=== PATIENT | male | born 1935 | race Caucasian/White ===

== ENCOUNTER 2017-05-09 22:00 | Emergency (ER) | payer OTHER ==
[~2017-05-09] VITALS: Ht 160 cm; Wt 63.4 kg
[~2017-05-09 22:00] MED LIST: ASPCH81X PO; ATOR-26 PO; CARV3.12 PO; FENT50DI19 TD; FERR1TAB24 PO; MULT-506 PO; PRLSR20 PO; SITA50TA3 PO; VANC1INJ10 PO; WARF-283 PO
[2017-05-09] MEDS ORDERED: ETOMIDATE 2 MG/ML 20 ML VIAL IV ONE (22:02)
[2017-05-09] MEDS ORDERED: SODIUM CHLORIDE 0.9% 10ML FLUSH IV ONE (22:02)
[2017-05-09] MEDS ORDERED: SUCCINYLCHOLINE CHLORIDE 20 MG/ML 10 ML VIAL IV ONE (22:02)
[2017-05-09] MEDS ORDERED: ROCURONIUM BROMIDE 10 MG/ML 10 ML VIAL IV ONE (22:02)
[2017-05-09] MEDS ORDERED: SODIUM CHLORIDE 0.9% INJ 10 ML VIAL IV ONE (22:02)
[2017-05-09] MEDS ORDERED: VECURONIUM BROMIDE 10 MG VIAL IV ONE (22:02)
[2017-05-09] MEDS ORDERED: SODIUM BICARB 8.4% INJ 50 MEQ/50 ML SYR IV ONE (22:02)
[2017-05-09 22:03] VITALS: TEMP 36.5; Ht 160 cm; Wt 63.4 kg
[2017-05-09] MEDS ORDERED: SODIUM CHLORIDE 0.9% 500ML 500 ML IV STA (22:13)
[2017-05-09] MEDS ORDERED: SODIUM CHLORIDE 0.9% 1000ML 1,000 ML IV STA (22:13)
[2017-05-09] MEDS ORDERED: LIDOCAINE/EPINEPHRINE 1% 20 ML VIAL INFIL ONE (22:15)
[2017-05-09] MEDS ORDERED: RAPID SEQUENCE INDUCTION BAG ONE (22:43)
[2017-05-09] MEDS ORDERED: ATOR-24 PO (22:57)
[2017-05-09] MEDS ORDERED: ASPCH81X PO (22:57)
[2017-05-09] MEDS ORDERED: CALC0.2510 PO (22:58)
[2017-05-09] MEDS ORDERED: FURO-85 PO (22:58)
[2017-05-09] MEDS ORDERED: GLIP-172 PO (22:58)
[2017-05-09] MEDS ORDERED: WARF4TAB PO ×2 (23:01)
--- NOTE | 2017-05-09 23:05 | DIAGNOSTIC IMAGING REPORT ---
CHEST ONE VIEW PORTABLE CLINICAL HISTORY: Weakness. Fall. COMPARISON STUDY: Chest radiograph October 27, 2013. FINDINGS: A right internal jugular [id number] is in place. There are median sternotomy wires and clips from bypass grafting. Cardiomegaly is unchanged. There is a small to moderate right pleural effusion and a small left pleural effusion. Hazy right lung airspace opacity. There is mild left basilar opacity. There is no pneumothorax. IMPRESSION: 1. No pneumothorax. 2. Small to moderate right pleural effusion. Small left pleural effusion. 3. Asymmetric right lung airspace opacity which could reflect atelectasis, layering pleural fluid, pneumonia or asymmetric pulmonary edema. Electronically signed by: Adrien Rene M.D. 05/09/2017 11:04 PM Dictated Date/Time: 05/09/2017 11:01 PM
[2017-05-09] MEDS ORDERED: PHYTONADIONE INJ 10 MG in SODIUM CHLORIDE 0.9% 50ML 50 ML IV ONE (23:15)
[2017-05-09 23:18] LABS: ISTAT ARTERIAL BLOOD GAS HCO3 22 meq/L (19-24); ISTAT ARTERIAL BLOOD GAS PCO2 46 mmHg (35-46); ISTAT ARTERIAL BLOOD GAS PO2 297 mmHg (80-95); ISTAT ARTERIAL BLOOD GAS pH 7.29 (7.35-7.45); ISTAT CARBON DIOXIDE 24 mEq/l (24-31); ISTAT HEMATOCRIT 23 % (42-52); ISTAT HEMOGLOBIN 7.8 g/dl (14.0-18.0); ISTAT SODIUM 139 mEq/L (135-144)
[2017-05-09] MEDS ORDERED: DOPamine 400MG / 250ML D5W ONE (23:30)
[2017-05-09] MEDS ORDERED: NOREPINEPHRINE BIT INJ 8 MG in DEXTROSE 5% 500ML 500 ML IV STA (23:33)
[2017-05-09 23:40] LABS: HEMATOCRIT 26.7 % (42-52); MEAN CELL VOLUME 97.4 fL (80-100); MEAN CORPUSCULAR HEMOGLOBIN 32.5 pg (25-34); MEAN CORPUSCULAR HGB CONC 33.3 g/dl (32-36); MEAN PLATELET VOLUME 12.1 fL (7.4-10.4); PLATELET COUNT 194 K/uL (130-400); RED BLOOD COUNT 2.74 M/uL (4.7-6.1); WHITE BLOOD COUNT 10.04 K/uL (4.8-10.8)
[2017-05-09] MEDS ORDERED: NOREPINEPHRINE BIT INJ 8 MG in DEXTROSE 5% 500ML 500 ML IV PRN (23:45)
[2017-05-09 23:47] LABS: INR 2.3 (0.9-1.1); PARTIAL THROMBOPLASTIN RATIO 2.5; PROTHROMBIN TIME (PATIENT) 25.5 SECONDS (9.0-12.0)
[2017-05-09 23:52] LABS: BASO % 1.2 %; BASO ABS # 0.12 K/uL (0-0.2); COMPLETE YES; EOS % 7.8 %; IG% 0.9 %; LYMPH % 24.8 %; LYMPH ABS # 2.49 K/uL (1.2-3.4); MONO % 9.4 %; NEUT % 55.9 %; PLT ESTIMATE NORMAL
[2017-05-10] MEDS ORDERED: PROTHROMBIN COMP CONC- KCENTRA 1,500 UNIT in SYRINGE 0 ML IV ONE
[2017-05-10 00:05] LABS: ALKALINE PHOSPHATASE 34 U/L (45-117); ALT/SGPT 13 U/L (12-78); AST/SGOT 15 U/L (15-37); BLOOD UREA NITROGEN 37 mg/dl (7-18); BUN/CREATININE RATIO 13.3 (10-20); CALCIUM 6.3 mg/dl (8.5-10.1); CARBON DIOXIDE 21 mmol/L (21-32); CHLORIDE 110 mmol/L (98-107); GLUCOSE 441 mg/dl (70-99); POTASSIUM 4.4 mmol/L (3.5-5.1); SODIUM 142 mmol/L (136-145)
[2017-05-10 00:11] VITALS: BP 105/61; PULSE 90
--- NOTE | 2017-05-10 00:38 | EMERGENCY ROOM VISIT NOTE ---
ED Visit Note First contact with patient: 22:06 Tube Thoracostomy Indication: Pneumothorax/MIKE; hypotension, coagulopathy Emergently placed. At this time, the risks of the procedure are less than the risks of NOT performing the procedure. A time out was taken and the correct patient and site identified. The patient was prepped and draped in the standard surgical fashion. A 3 cm incision was made transversely in the mid axillary line over the fifth intercostal rib. Blunt dissection was done with a Paloma clamp to the area of the intercostal muscles; Blunt dissection was then done with the Paloma clamps into the pleural cavity over the rib. [blood and air ] was noted upon entering the pleural cavity. The pleural cavity was digitally inspected to confirm that the pleural cavity had been entered. A 32 Portuguese thoracostomy tube was inserted in the superior/posterior portion of the pleural space. 1-0 silk suture was used to approximate the skin above the thoracostomy tube and then used to secure the thoracostomy tube. An occlusive dressing was then placed and the thoracostomy tube was hooked to the Pleur-evac suction. The patient tolerated the procedure well without complications. A postoperative x- ray was then performed which showed the thoracostomy tube in the correct position.
[2017-05-10 00:56] VITALS: BP 54/41; O2SAT 96
[2017-05-10] MEDS ORDERED: TRANEXAMIC ACID INJ 1,000 MG in SODIUM CHLORIDE 0.9% 100ML 100 ML IV ONE (01:00)
[2017-05-10 01:02] VITALS: PULSE 30
[2017-05-10] MEDS ORDERED: EpINEphrine HCL INJ 4 MG in DEXTROSE 5% 250ML 250 ML IV SCH (01:08)
[2017-05-10 01:25] LABS: ISTAT CARBON DIOXIDE 17 mEq/l (24-31); ISTAT CHLORIDE 97 mEq/L (101-112); ISTAT CREATININE 2.7 mg/dl (0.6-1.3); ISTAT HEMATOCRIT 26 % (42-52); ISTAT HEMOGLOBIN 8.8 g/dl (14.0-18.0); ISTAT IONIZED CALCIUM 0.84 mmol/l (1.12-1.32); ISTAT SODIUM 129 mEq/L (135-144)
--- NOTE | 2017-05-10 02:07 | EMERGENCY ROOM VISIT NOTE ---
ED Visit Note First contact with patient: 22:06 Patient was seen by me immediately after the physician education assistant called me to the room as she noticed the patient was hypotensive and had sustained back lacerations and was complaining of severe shortness of breath. Patient of note has a cardiac history and was on Coumadin. Patient became extremely restless diaphoretic complaining of severe shortness of breath chest x-ray was revealed potential for hemothorax no pneumothorax was actually seen. Patient was immediately brought to the critical care room and the patient was intubated by the physician education assistant with my supervision using a kaleidoscope. Patient continue to worsen and was hypotensive immediately fluids were established and the patient also had a central line attempted 2 times in the right groin as well as left groin but we were unable to thread the guidewire because it was meeting resistance. Patient also had a port we accessed the port there were 2 IVs peripherally established patient started to continue to be hypotensive and patient was started on blood, vitamin K, a central was ordered, T x-ray was ordered, dopamine was started, Levothroid was started, a chest tube was placed in the right chest by me for significant hemothorax with hemodynamic instability. Patient continued to be in critical condition. I spoke at great length with the patient's at bedside. Patient went into an asystolic rhythm CPR was started I brought the family bedside the patient did not have return of spontaneous circulation and the patient was pronounced by me at 1:20 AM Problem List Medical Problems: (1) Benign hypertension Status: Chronic (2) Calculus of kidney and ureter Status: Resolved (3) CKD (chronic kidney disease) stage 4, GFR 15-29 ml/min Status: Chronic (4) Colonoscopy Status: Resolved (5) Coronary artery disease Permanent Comment: NSTEMI 2013 CABG 2012 Status: Chronic (6) Diabetes mellitus type 2 Status: Chronic (7) Diverticular disease of colon Status: Chronic (8) Lithotripsy Status: Resolved (9) Renal carcinoma Permanent Comment: Ca right kidney nephrouretectomy 2012 Dr. 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 Garcia Status: Chronic Surgical Problems: (1) S/p nephrectomy Permanent Comment: right kidney 2013 [facility] Dr. Rueda poorly differentiated carcinoma Status: Resolved (2) Status post coronary artery bypass grafting Permanent Comment: [facility] 2012 Status: Resolved Current/Historical Medications Scheduled Aspirin (Aspirin Chewable), 81 MG PO DAILY Atorvastatin (Lipitor), 40 MG PO DAILY Calcitriol (Rocaltrol Cap), 0.25 MCG PO 2XWK Carvedilol (Coreg), 3.125 MG PO BID Furosemide (Lasix), 20 MG PO DAILY Glipizide (Glipizide Xl), 2.5 MG PO QAM Multivitamin (Multivitamin), 1 TAB PO DAILY Omeprazole (Prilosec), 20 MG PO DAILY Warfarin Sodium (Coumadin), 2 MG PO 2XWK Warfarin Sodium (Coumadin), 4 MG PO 5XWK Allergies Coded Allergies: No Known Allergies (Unverified , 05/09/17) Vital Signs Date Time Temp Pulse Resp B/P (MAP) Pulse Ox O2 Delivery O2 Flow Rate FiO2 05/10/17 01:02 30 05/10/17 00:56 109 16 54/41 96 05/10/17 00:51 114 16 57/43 99 05/10/17 00:50 113/85 05/10/17 00:46 103 16 100 05/10/17 00:41 106 16 99 05/10/17 00:36 114 16 76/43 100 05/10/17 00:34 116 05/10/17 00:33 93/49 05/10/17 00:11 90 16 105/61 05/10/17 00:11 90 16 05/10/17 00:06 105/61 05/10/17 00:00 102 16 05/09/17 23:58 78/ 05/09/17 23:46 79/60 05/09/17 23:44 103 05/09/17 23:42 63/31 05/09/17 23:41 78 05/09/17 23:40 53 16 82 05/09/17 23:37 54/28 05/09/17 23:35 44/36 05/09/17 23:35 58 05/09/17 23:33 59 05/09/17 23:33 149/84 05/09/17 23:30 /31 05/09/17 23:20 131 16 96 05/09/17 23:16 81/55 05/09/17 23:11 84/54 05/09/17 23:09 83/56 05/09/17 23:06 64/50 05/09/17 23:02 51/36 05/09/17 23:00 100 05/09/17 23:00 103 16 85/49 05/09/17 22:58 100 05/09/17 22:56 52/39 05/09/17 22:52 61/36 05/09/17 22:50 47/30 05/09/17 22:47 /41 05/09/17 22:45 137/123 05/09/17 22:40 95 32 82 05/09/17 22:37 66/46 05/09/17 22:34 99 05/09/17 22:33 77/55 05/09/17 22:30 92/49 05/09/17 22:03 36.5 97 18 88/55 96 Room Air Laboratory Results 05/09/17 23:00 Red Blood Count 2.74, Mean Corpuscular Volume 97.4, Mean Corpuscular Hemoglobin 32.5, Mean Corpuscular Hemoglobin Concent 33.3, Mean Platelet Volume 12.1, Neutrophils (%) (Auto) 55.9, Lymphocytes (%) (Auto) 24.8, Monocytes (%) (Auto) 9.4, Eosinophils (%) (Auto) 7.8, Basophils (%) (Auto) 1.2, Neutrophils # (Auto) 5.62, Lymphocytes # (Auto) 2.49, Monocytes # (Auto) 0.94, Eosinophils # (Auto) 0.78, Basophils # (Auto) 0.12 05/09/17 23:20 Test 05/09/17 23:00 05/09/17 23:03 05/09/17 23:20 05/10/17 01:12 White Blood Count 10.04 K/uL (4.8-10.8) Red Blood Count 2.74 M/uL (4.7-6.1) Hemoglobin 8.9 g/dL (14.0-18.0) Hematocrit 26.7 % (42-52) Mean Corpuscular Volume 97.4 fL (80-100) Mean Corpuscular Hemoglobin 32.5 pg (25-34) Mean Corpuscular Hemoglobin Concent 33.3 g/dl (32-36) Platelet Count 194 K/uL (130-400) Mean Platelet Volume 12.1 fL (7.4-10.4) Neutrophils (%) (Auto) 55.9 % Lymphocytes (%) (Auto) 24.8 % Monocytes (%) (Auto) 9.4 % Eosinophils (%) (Auto) 7.8 % Basophils (%) (Auto) 1.2 % Neutrophils # (Auto) 5.62 K/uL (1.4-6.5) Lymphocytes # (Auto) 2.49 K/uL (1.2-3.4) Monocytes # (Auto) 0.94 K/uL (0.11-0.59) Eosinophils # (Auto) 0.78 K/uL (0-0.5) Basophils # (Auto) 0.12 K/uL (0-0.2) RDW Standard Deviation 56.5 fL (36.4-46.3) RDW Coefficient of Variation 16.0 % (11.5-14.5) Immature Granulocyte % (Auto) 0.9 % Immature Granulocyte # (Auto) 0.09 K/uL (0.00-0.02) Nucleated RBC Absolute Count (auto) 0.45 K/uL (0-0) Nucleated Red Blood Cells % 4.4 % Platelet Estimate NORMAL Red Blood Cell Morphology Unremarkable Bedside Blood Gas pH (LAB) 7.29 (7.35-7.45) Bedside Blood Gas pCO2 (LAB) 46 mmHg (35-46) Bedside Blood Gas pO2 (LAB) 297 mmHg (80-95) Bedside Blood Gas HCO3 (LAB) 22 meq/L (19-24) Bedside Blood Gas Total CO2 24 mEq/l (24-31) Bedside Blood Gas Base Excess (LAB) -4.0 meq/L (-9-1.8) Bedside Blood Gas O2 Saturation 100.0 % (90-95) Prothrombin Time 25.5 SECONDS (9.0-12.0) Prothromb Time International Ratio 2.3 (0.9-1.1) Activated Partial Thromboplast Time 64.1 SECONDS (21.0-31.0) Partial Thromboplastin Ratio 2.5 Est Creatinine Clear Calc Drug Dose 16.6 ml/min Estimated GFR () 23.5 Estimated GFR (Non- 20.2 BUN/Creatinine Ratio 13.3 (10-20) Calcium Level 6.3 mg/dl (8.5-10.1) Total Bilirubin 1.0 mg/dl (0.2-1) Direct Bilirubin < 0.1 mg/dl (0-0.2) Aspartate Amino Transf (AST/SGOT) 15 U/L (15-37) Alanine Aminotransferase (ALT/SGPT) 13 U/L (12-78) Alkaline Phosphatase 34 U/L (45-117) Troponin I < 0.015 ng/ml (0-0.045) Total Protein 3.7 gm/dl (6.4-8.2) Albumin 1.7 gm/dl (3.4-5.0) Beta-Hydroxybutyric Acid 2.60 mg/dL (0.2-2.81) Bedside Hemoglobin 8.8 g/dl (14.0-18.0) Bedside Hematocrit 26 % (42-52) Bedside Sodium 129 mEq/L (135-144) Bedside Potassium 5.1 mEq/L (3.3-5.0) Bedside Chloride 97 mEq/L (101-112) Bedside Total CO2 17 mEq/l (24-31) Anion Gap 21.0 mmol/L (16-25) Bedside Blood Urea Nitrogen 35 mg/dl (7-18) Bedside Creatinine 2.7 mg/dl (0.6-1.3) Bedside Glucose (other) > 700 mg/dl (70-99) Bedside Ionized Calcium (Jennifer) 0.84 mmol/l (1.12-1.32) Medications Administered Medications (Trade) Dose Ordered Sig/Sarah Route Start Time Stop Time Status Last Admin Dose Admin Miscellaneous (Rapid Sequence Induction Bag) 1 ea STK-MED ONCE N/A 05/09/17 22:43 05/09/17 22:44 DC 05/09/17 22:48 1 EA Departure Information Referrals Oscar Hutton M.D. (PCP) Patient Instructions My [facility]
--- NOTE | 2017-05-10 05:24 | DIAGNOSTIC IMAGING REPORT ---
CHEST ONE VIEW PORTABLE CLINICAL HISTORY: POST INTUBATION tube position COMPARISON STUDY: 05/09/2017 10:36 PM. FINDINGS: Endotracheal tube positioned 2.5 cm both karen. Slightly progressive right pleural effusion. Unchanging infiltrative change left base. IMPRESSION: Position of an endotracheal tube 2.5 cm above the karen. Mildly progressive right pleural effusion. Unchanging components of pulmonary edema The above report was generated using voice recognition software. It may contain grammatical, syntax or spelling errors. Electronically signed by: Oscar Holley M.D. 05/10/2017 5:23 AM Dictated Date/Time: 05/10/2017 5:22 AM
--- NOTE | 2017-05-10 05:43 | EMERGENCY ROOM VISIT NOTE ---
History First contact with patient: 22:06 Chief Complaint: LACERATION/CUT (NON-SUTURE) Stated Complaint: FELL, NEEDS STITCHES IN BACK Nursing Triage Summary: pt reports slipped when getting out of tub , fell into toilet , obtained lac to back on L shoulder and low back pt denies LOc or striking head History of Present Illness The patient is a 81 year old male who presents to the Emergency Room with complaints of slipping and falling from the shower to the toilet just prior to arrival. Patient states he was trying to get out of the shower, slipped and fell landing on his back on the toilet sustaining back lacerations. Patient called out for his who helped get him up and cleaned him up and then they came here for his lacerations. Tetanus is current. Patient complains of being short of breath and lightheaded and dizzy. Patient denies chest pain, fevers, headache injury, neck pain, abdominal pain, vomiting, diarrhea, recent illness, loss of vision, black or blood in his stool. Patient states he felt fine all day and was gardening. Patient states he did slip and fall in the shower. He did not pass out. Patient did ambulate here without difficulties per patient. Review of Systems See HPI for pertinent positives & negatives. A total of 10 systems reviewed and were otherwise negative. Past Medical/Surgical History Medical Problems: (1) Benign hypertension (2) Calculus of kidney and ureter (3) CKD (chronic kidney disease) stage 4, GFR 15-29 ml/min (4) Colonoscopy (5) Coronary artery disease (6) Diabetes mellitus type 2 (7) Diverticular disease of colon (8) Lithotripsy (9) Renal carcinoma Surgical Problems: (1) S/p nephrectomy (2) Status post coronary artery bypass grafting Family History Cancer Social History Smoking Status: Never Smoker Alcohol Use: none Drug Use: none Marital Status: Housing Status: lives with family Occupation Status: retired Current/Historical Medications Scheduled Aspirin (Aspirin Chewable), 81 MG PO DAILY Atorvastatin (Lipitor), 40 MG PO DAILY Calcitriol (Rocaltrol Cap), 0.25 MCG PO 2XWK Carvedilol (Coreg), 3.125 MG PO BID Furosemide (Lasix), 20 MG PO DAILY Glipizide (Glipizide Xl), 2.5 MG PO QAM Multivitamin (Multivitamin), 1 TAB PO DAILY Omeprazole (Prilosec), 20 MG PO DAILY Warfarin Sodium (Coumadin), 2 MG PO 2XWK Warfarin Sodium (Coumadin), 4 MG PO 5XWK Allergies Coded Allergies: No Known Allergies (Unverified , 05/09/17) Physical Exam Vital Signs Date Time Temp Pulse Resp B/P (MAP) Pulse Ox O2 Delivery O2 Flow Rate FiO2 05/10/17 01:02 30 05/10/17 00:56 109 16 54/41 96 05/10/17 00:51 114 16 57/43 99 05/10/17 00:50 113/85 05/10/17 00:46 103 16 100 05/10/17 00:41 106 16 99 05/10/17 00:36 114 16 76/43 100 05/10/17 00:34 116 05/10/17 00:33 93/49 05/10/17 00:11 90 16 105/61 05/10/17 00:11 90 16 05/10/17 00:06 105/61 05/10/17 00:00 102 16 05/09/17 23:58 78/ 05/09/17 23:46 79/60 05/09/17 23:44 103 05/09/17 23:42 63/31 05/09/17 23:41 78 05/09/17 23:40 53 16 82 05/09/17 23:37 54/28 05/09/17 23:35 44/36 05/09/17 23:35 58 05/09/17 23:33 59 05/09/17 23:33 149/84 05/09/17 23:30 /31 05/09/17 23:20 131 16 96 05/09/17 23:16 81/55 05/09/17 23:11 84/54 05/09/17 23:09 83/56 05/09/17 23:06 64/50 05/09/17 23:02 51/36 05/09/17 23:00 100 05/09/17 23:00 103 16 85/49 05/09/17 22:58 100 05/09/17 22:56 52/39 05/09/17 22:52 61/36 05/09/17 22:50 47/30 05/09/17 22:47 /41 05/09/17 22:45 137/123 05/09/17 22:40 95 32 82 05/09/17 22:37 66/46 05/09/17 22:34 99 05/09/17 22:33 77/55 05/09/17 22:30 92/49 05/09/17 22:03 36.5 97 18 88/55 96 Room Air Pain Rating (0-10): 0 Physical Exam PHYSICAL EXAM: VITALS: Vitals are noted on the nurse's note and reviewed by myself. Vital signs hypotensive GENERAL: White male pale diaphoretic, in acute distress SKIN: Left upper back with 6 cm laceration that is gaping, right mid back with 8 cm jagged laceration that is gaping and bleeding The rest of the skin was without obvious abrasions. Capillary reflex less than 2 seconds. HEAD: Normocephalic atraumatic. EARS: External auditory canals clear, tympanic membranes pearly mays without erythema or effusion bilaterally. No hemotympanums. No ring sign. No mastoid tenderness. EYES: Pupils equal round and reactive to light and accommodation. Conjunctivae without injection, sclerae without icterus. Extraocular movements intact. NOSE: Patent, turbinates without inflammation or discharge. No sinus tenderness. No septal hematoma or bleeding. FACE: No facial bone tenderness. Full range of motion of the jaw without tenderness. MOUTH: Mucous membranes moist. Pharynx without erythema or exudate. Uvula midline. Airway patent. Tongue does not deviate. NECK: Supple without nuchal rigidity. Cervical spine is nontender. Full range of motion of the neck without tenderness. No JVD. HEART: Regular rate and rhythm without murmurs gallops or rubs. LUNGS: Clear to auscultation bilaterally without wheezes, rales or rhonchi. No dullness to percussion. No retractions or accessory muscle use. No chest wall tenderness. ABDOMEN: Positive bowel sounds x 4. Normal tympanic percussion. Soft, nontender, without masses or organomegaly. No guarding or rebound tenderness. MUSCULOSKELETAL: Minimal mid thoracic and lumbar spine tenderness. No tenderness with pelvic rocking. Full range of motion without tenderness to palpation in all extremities. Normal gait. Strength 5/5 throughout. Peripheral pulses 2+. NEURO: Patient was alert and oriented to person place and time. Normal Mini- Mental status exam. Normal sensation to light and sharp touch. Negative Romberg and pronator drift. Cerebellar function intact. No focal neurological deficits. Medical Decision & Procedures Laboratory Results 05/09/17 23:00 Red Blood Count 2.74, Mean Corpuscular Volume 97.4, Mean Corpuscular Hemoglobin 32.5, Mean Corpuscular Hemoglobin Concent 33.3, Mean Platelet Volume 12.1, Neutrophils (%) (Auto) 55.9, Lymphocytes (%) (Auto) 24.8, Monocytes (%) (Auto) 9.4, Eosinophils (%) (Auto) 7.8, Basophils (%) (Auto) 1.2, Neutrophils # (Auto) 5.62, Lymphocytes # (Auto) 2.49, Monocytes # (Auto) 0.94, Eosinophils # (Auto) 0.78, Basophils # (Auto) 0.12 05/09/17 23:20 Test 05/09/17 23:00 05/09/17 23:03 05/09/17 23:20 05/10/17 01:12 White Blood Count 10.04 K/uL (4.8-10.8) Red Blood Count 2.74 M/uL (4.7-6.1) Hemoglobin 8.9 g/dL (14.0-18.0) Hematocrit 26.7 % (42-52) Mean Corpuscular Volume 97.4 fL (80-100) Mean Corpuscular Hemoglobin 32.5 pg (25-34) Mean Corpuscular Hemoglobin Concent 33.3 g/dl (32-36) Platelet Count 194 K/uL (130-400) Mean Platelet Volume 12.1 fL (7.4-10.4) Neutrophils (%) (Auto) 55.9 % Lymphocytes (%) (Auto) 24.8 % Monocytes (%) (Auto) 9.4 % Eosinophils (%) (Auto) 7.8 % Basophils (%) (Auto) 1.2 % Neutrophils # (Auto) 5.62 K/uL (1.4-6.5) Lymphocytes # (Auto) 2.49 K/uL (1.2-3.4) Monocytes # (Auto) 0.94 K/uL (0.11-0.59) Eosinophils # (Auto) 0.78 K/uL (0-0.5) Basophils # (Auto) 0.12 K/uL (0-0.2) RDW Standard Deviation 56.5 fL (36.4-46.3) RDW Coefficient of Variation 16.0 % (11.5-14.5) Immature Granulocyte % (Auto) 0.9 % Immature Granulocyte # (Auto) 0.09 K/uL (0.00-0.02) Nucleated RBC Absolute Count (auto) 0.45 K/uL (0-0) Nucleated Red Blood Cells % 4.4 % Platelet Estimate NORMAL Red Blood Cell Morphology Unremarkable Bedside Blood Gas pH (LAB) 7.29 (7.35-7.45) Bedside Blood Gas pCO2 (LAB) 46 mmHg (35-46) Bedside Blood Gas pO2 (LAB) 297 mmHg (80-95) Bedside Blood Gas HCO3 (LAB) 22 meq/L (19-24) Bedside Blood Gas Total CO2 24 mEq/l (24-31) Bedside Blood Gas Base Excess (LAB) -4.0 meq/L (-9-1.8) Bedside Blood Gas O2 Saturation 100.0 % (90-95) Prothrombin Time 25.5 SECONDS (9.0-12.0) Prothromb Time International Ratio 2.3 (0.9-1.1) Activated Partial Thromboplast Time 64.1 SECONDS (21.0-31.0) Partial Thromboplastin Ratio 2.5 Est Creatinine Clear Calc Drug Dose 16.6 ml/min Estimated GFR () 23.5 Estimated GFR (Non- 20.2 BUN/Creatinine Ratio 13.3 (10-20) Calcium Level 6.3 mg/dl (8.5-10.1) Total Bilirubin 1.0 mg/dl (0.2-1) Direct Bilirubin < 0.1 mg/dl (0-0.2) Aspartate Amino Transf (AST/SGOT) 15 U/L (15-37) Alanine Aminotransferase (ALT/SGPT) 13 U/L (12-78) Alkaline Phosphatase 34 U/L (45-117) Troponin I < 0.015 ng/ml (0-0.045) Total Protein 3.7 gm/dl (6.4-8.2) Albumin 1.7 gm/dl (3.4-5.0) Beta-Hydroxybutyric Acid 2.60 mg/dL (0.2-2.81) Bedside Hemoglobin 8.8 g/dl (14.0-18.0) Bedside Hematocrit 26 % (42-52) Bedside Sodium 129 mEq/L (135-144) Bedside Potassium 5.1 mEq/L (3.3-5.0) Bedside Chloride 97 mEq/L (101-112) Bedside Total CO2 17 mEq/l (24-31) Anion Gap 21.0 mmol/L (16-25) Bedside Blood Urea Nitrogen 35 mg/dl (7-18) Bedside Creatinine 2.7 mg/dl (0.6-1.3) Bedside Glucose (other) > 700 mg/dl (70-99) Bedside Ionized Calcium (Jennifer) 0.84 mmol/l (1.12-1.32) Medications Administered Medications (Trade) Dose Ordered Sig/Sarah Route Start Time Stop Time Status Last Admin Dose Admin Miscellaneous (Rapid Sequence Induction Bag) 1 ea STK-MED ONCE N/A 05/09/17 22:43 05/09/17 22:44 DC 05/09/17 22:48 1 EA Procedure Endotracheal Intubation Indication respiratory failure. The patient was on 100% oxygen via NRB prior to the procedure. Suction, airway equipment, RSI drugs, respiratory equipment, and appropriate personnel were prepared prior to the initiation of the procedure. A time out was taken. Induction was performed with Succinylcholine and Etomidate. After observing the clinical benefit of the medications, the airway was easily visualized utilizing a glide scope. A 7.5 size ETT tube was placed atraumatically to 22 cm using standard technique. The cuff inflated without signs of malfunction. There were bilateral breath sounds, positive colormetric change, no gastric sounds, a good capnography waveform, and post procedure pulse oximetry was 98%. Post intubation sedation and paralysis was administered using vecuronium. There were no complications. Location: back Total length: 8cm Complexity: simple A time out was taken and the correct patient and site identified. The skin was prepped with betadine. Copious irrigation was performed using NSS. The skin was re-prepped with betadine and a sterile field set. The wound was explored for foreign bodies and none found. Examination revealed no injury to deep structures such as tendons, bone, or significant blood vessels. Debridement was not performed. The wound edges were approximated using 30 milagros. Hemostasis and excellent approximation was achieved. Antibacterial ointment and a sterile dressing applied. . No complications and the patient tolerated the procedure well. Location: upper back Total length: 6cm Complexity: simple A time out was taken and the correct patient and site identified. The skin was prepped with betadine. \ Copious irrigation was performed using NSS. The skin was re-prepped with betadine and a sterile field set. The wound was explored for foreign bodies and none found. Examination revealed no injury to deep structures such as tendons, bone, or significant blood vessels. Debridement was not performed. The wound edges were approximated using 20 milagros. Hemostasis and excellent approximation was achieved. Antibacterial ointment and a sterile dressing applied. ED Course Prior records/ancillary studies reviewed. Triage Nursing notes reviewed. Additional history obtained from family The patient's history was concerning for traumatic injury. Differential diagnosis: Etiologies such as fracture, dislocation, intra-abdominal, pneumothorax, intrathoracic , intracranial, neurologic, as well as other traumatic pathologies were entertained. Physical examination findings: As above. The patients vitals were hypotensive and tachycardic. ER treatment provided: IV Normal Saline hydration, 6000 mL. on pressure bags. Patient was given uncrossed blood and he was given 6 units on pressure bags. He was placed on dopamine and Levophed wide open and on pressure bags He was given TXA and K Centura. and vitamin K Procedures: Chest tube, intubation, peripheral lines, OG, Jamison catheter On reassessment the patient felt better. Vital signs were hypotensive and tachycardic. Diagnostic interpretation by me: A bedside F.A.S.T ultrasound was performed by me and revealed no free fluid in the abdomen A 12 lead ECG revealed no emergent pathology. Normal sinus, normal intervals, no acute ST-T wave changes. Impression normal sinus rhythm interpreted by myself The labs revealed anemia elevated creatinine Imaging studies: Chest x-ray initially shows no free air small pleural effusion, per my interpretation. Repeat chest x-ray after intubation shows concerns for hemothorax. CT of the head, chest, abdomen, pelvis, spine shows right hemothorax per stat radiology Consultation: A consultation was placed with Dr. Kurtz. The case was discussed and diagnostics were reviewed. The patient was given K Centura. This appears to be consistent with trauma with huge hemothorax to ended up going asystole and then expiring. Upon initial evaluation of this patient I called my attending immediately. Clearly this triage was miss triaged. Patient does have some lacerations to his back but he was extremely diaphoretic and hypotensive upon my initial evaluation. I asked the nurses to come in immediately and help and place 2 IV lines and hang fluids wide open put pacer pads on this patient and start emergent protocols and treatment of this patient. I consulted pharmacy and Dr. Grove for K Centura and vitamin K. It was quite difficult to get the patient's blood and took time to get the POC INR. Central lines were attempted by my attending and were unsuccessful. Patient was extremely hypotensive which made it difficult to obtain the blood. Patient continued to decompensate and was too unstable to go to CT for quite some time. He was then intubated by myself and paralytics/sedation medications were written by my attending. Once patient was stable enough to get a CT he was taken down there on the monitor with nursing and myself. CT was concerning for large hemothorax per my interpretation in CT and then notified by attending who reviewed the CT is also. It took stat rad over 2 hours to read the scans. By this time the patient had already . After the patient was stapled and OG tube was placed repeat x-ray were ordered but then the patient Became hypotensive tachycardic and then asystolic. CPR was initiated. A code was initiated. Patient was given multiple rounds of epinephrine and bicarbonate with no spontaneous return of circulation. He was coded for over half an hour with my attending and myself and nursing. Upon initial evaluation of this patient, I never left this room. Despite extensive measures the patient kept on Decompensating despite Pressors, IV Fluids, blood products and invasive procedures. The patient was a full code per patient and the as I asked them during my initial evaluation as the patient looked quite ill. I informed the that it is highly unlikely that he would have return of spontaneous circulation as we have been coding him for over half hour. The agreed to discontinue all measures. She saw her for the last time. The was informed of all the measures that were done and was kept informed during the resuscitation process. My attending was in the room with me and patient was reassessed multiple times and chart review was obtained. Patient did have a history of renal carcinoma with nephrectomy but has been chemotherapy and cancer free for greater than 3 years. He does have extensive heart disease and has had a CABG in the past. He was on anticoagulation for DVT. The patient was pronounced by my attending. Case reviewed with my attending. Medical Decision As above Impression Primary Impression: Cardiac arrest Additional Impressions: Hemothorax Laceration of back Anemia Hyperglycemia due to type 2 diabetes mellitus Critical Care I have personally spent greater than 120 minutes of critical care time in the direct management of this patient. This includes bedside care, interpretation of diagnostic studies, and testing, discussion with consultants, patient, and family members, and other required patient management activities. This 120 minutes is in excess of all separately billable procedures. 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 (PCP) Forms WORK / SCHOOL INSTRUCTIONS, HOME CARE DOCUMENTATION FORM, IMPORTANT VISIT INFORMATION Patient Instructions My [facility] Problem Qualifiers
--- NOTE | 2017-05-10 05:47 | DIAGNOSTIC IMAGING REPORT ---
CHEST ONE VIEW PORTABLE CLINICAL HISTORY: POST CHEST TUBE PLACEMENT tube position COMPARISON STUDY: 05/09/2017 11:22 PM FINDINGS: Placement of right-sided chest tube. Slight improvement in aeration right hemithorax. No significant pneumothorax. Endotracheal tube remains 2.5 cm above the karen. IMPRESSION: Placement right chest tube in good position. No evidence pneumothorax. Mild improvement in aeration right hemithorax. The above report was generated using voice recognition software. It may contain grammatical, syntax or spelling errors. Electronically signed by: Oscar Holley M.D. 05/10/2017 5:46 AM Dictated Date/Time: 05/10/2017 5:45 AM
--- NOTE | 2017-05-10 05:53 | DIAGNOSTIC IMAGING REPORT ---
THORACIC SPINE WITHOUT CT DOSE: HISTORY: Trauma fall, trauma, hypotensive, on coumadin TECHNIQUE: Multiaxial CT images of the thoracic spine were performed and reformatted in the sagittal and coronal plane without the use of contrast. A dose lowering technique was utilized adhering to the principles of ALARA. COMPARISON: None. FINDINGS: No evidence for fracture. Vertebral stature is unremarkable. Endotracheal tube at the origin of the right mainstem bronchus. It should be pulled back several centimeters. Large right pleural effusion versus hemothorax. Right-sided chest tube. Bibasilar atelectatic change. IMPRESSION: 1. No evidence for acute bony abnormality. 2. Large right pleural effusion versus hemothorax. 3. Bibasilar atelectatic and/or infiltrative change. 4. Endotracheal tube at the origin of the right mainstem bronchus. It should be pulled back somewhat. The above report was generated using voice recognition software. It may contain grammatical, syntax or spelling errors. Electronically signed by: Oscar Holley M.D. 05/10/2017 5:52 AM Dictated Date/Time: 05/10/2017 5:48 AM
--- NOTE | 2017-05-10 06:11 | DIAGNOSTIC IMAGING REPORT ---
HEAD WITHOUT CONTRAST (CT) CT DOSE: 2545.81 mGy.cm HISTORY: Trauma fall, trauma, hypotensive, on coumadin TECHNIQUE: Multiaxial CT images of the head were performed without the use of intravenous contrast. A dose lowering technique was utilized adhering to the principles of ALARA. Comparison: None. Findings: Air within the cavernous sinuses. Soft tissue air within the upper soft tissue neck region. Possible cortical fracture left lateral maxillary sinus wall. Air-fluid levels within the maxillary sinuses. No acute intracranial hemorrhage. Considerable chronic small vessel change. The calvarium and skull base are intact. The ventricles and sulci are within normal limits. There is no mass, hematoma, midline shift, or acute infarct. Impression: 1. No acute intracranial abnormality. 2. Air within the cavernous sinuses as well as air within the soft tissues of the upper cervical neck region. 3. Possible fracture left lateral maxillary sinus wall. 4. Trace air within the superior right retro-orbital region possibly venous. The above report was generated using voice recognition software. It may contain grammatical, syntax or spelling errors. Electronically signed by: Oscar Holley M.D. 05/10/2017 6:10 AM Dictated Date/Time: 05/10/2017 6:07 AM
--- NOTE | 2017-05-10 06:17 | DIAGNOSTIC IMAGING REPORT ---
CERVICAL SPINE W/O CT DOSE: HISTORY: Trauma fall, trauma, hypotensive, on coumadin TECHNIQUE: Multiaxial CT images of the cervical spine were performed and reformatted in the sagittal and coronal plane without the use of contrast. A dose lowering technique was utilized adhering to the principles of ALARA. COMPARISON: None. FINDINGS: No fractures. No subluxation. Prevertebral soft tissues and the C1-C2 interval are intact. No pneumothorax. Evidence for soft tissue air within the soft tissue cervical region. IMPRESSION: No fractures within the cervical spine. Soft tissue air The above report was generated using voice recognition software. It may contain grammatical, syntax or spelling errors. Electronically signed by: Oscar Holley M.D. 05/10/2017 6:15 AM Dictated Date/Time: 05/10/2017 6:14 AM
--- NOTE | 2017-05-10 06:22 | DIAGNOSTIC IMAGING REPORT ---
ABD/PELVIS NO IV OR ORAL CONT CT DOSE: HISTORY: Trauma. Pain. fall, trauma, hypotensive, on coumadin TECHNIQUE: Multiaxial CT images of the abdomen and pelvis were performed without contrast. A dose lowering technique was utilized adhering to the principles of ALARA. COMPARISON STUDY: 10/26/2013 FINDINGS: Large right hemothorax. Right lower lobe atelectatic change. Left basilar atelectasis. Cortical fracture anterior right 10th rib. Prior median sternotomy. Moderate subcutaneous air adjacent to a right chest tube insertion site. Overall configuration of liver and spleen are unremarkable. Gallstone within the gallbladder lumen. Fatty replacement of components of the pancreas with a trace amount of peripancreatic infiltrative change. Prior right nephrectomy. Cortical scarring and atrophy left kidney. Nonobstructive bowel pattern. Mild chronic sigmoid diverticulosis. Jamison catheter within the urinary bladder. IMPRESSION: 1. Gallstones. 2. Right hemothorax with bibasilar atelectatic change. 3. Trace infiltrative change of the peripancreatic fascial planes 4. Chronic sigmoid diverticulosis. 5. Prior right nephrectomy The above report was generated using voice recognition software. It may contain grammatical, syntax or spelling errors. Electronically signed by: Oscar Holley M.D. 05/10/2017 6:21 AM Dictated Date/Time: 05/10/2017 6:16 AM
--- NOTE | 2017-05-10 06:24 | DIAGNOSTIC IMAGING REPORT ---
LUMBAR SPINE WITHOUT CT DOSE: HISTORY: Trauma fall, trauma, hypotensive, on coumadin TECHNIQUE: Multiaxial CT images of the lumbar spine were performed and reformatted in the sagittal and coronal plane without the use of contrast. A dose lowering technique was utilized adhering to the principles of ALARA. COMPARISON: None. FINDINGS: No fractures. No subluxation. Paraspinal soft tissues are unremarkable. Moderate degenerative change IMPRESSION: No fractures within the lumbar spine. Moderate degenerative change. The above report was generated using voice recognition software. It may contain grammatical, syntax or spelling errors. Electronically signed by: Oscar Holley M.D. 05/10/2017 6:23 AM Dictated Date/Time: 05/10/2017 6:21 AM
--- NOTE | 2017-05-10 06:29 | DIAGNOSTIC IMAGING REPORT ---
(CHEST) THORAX WITHOUT CT DOSE: HISTORY: Trauma fall, trauma, hypotensive, on coumadin TECHNIQUE: Multiaxial CT images of the chest were performed without contrast. A dose lowering technique was utilized adhering to the principles of ALARA. COMPARISON: 10/26/2013 FINDINGS: Endotracheal tube origin right main stem bronchus. This should be pulled back. Large right hemothorax. Atelectatic change right lower lobe. Right-sided chest tube is present. Subcutaneous air right hemithorax. Mild left basilar atelectatic change. Atherosclerotic change thoracic aorta. No significant mediastinal pathology. Cortical fracture anterior right 10th rib. IMPRESSION: 1. Large right hemothorax with a right-sided chest tube in position. 2. Right to lesser extent left basilar atelectatic change. 3. Endotracheal tube origin of the right mainstem bronchus. This should be pulled back somewhat. 4. Intravenous air. The above report was generated using voice recognition software. It may contain grammatical, syntax or spelling errors. Electronically signed by: Oscar Holley M.D. 05/10/2017 6:28 AM Dictated Date/Time: 05/10/2017 6:24 AM
== END 2017-05-10 02:56 | disposition expired ==
LOC: C.EDB 22:01
DX: S27.1XXA Traumatic hemothorax, initial encounter (principal); I46.9 Cardiac arrest, cause unspecified; S21.212A Laceration without foreign body of left back wall of thorax without penetration into thoracic cavity, initial encounter; S21.211A Laceration without foreign body of right back wall of thorax without penetration into thoracic cavity, initial encounter; D64.9 Anemia, unspecified; E11.65 Type 2 diabetes mellitus with hyperglycemia; W01.0XXA Fall on same level from slipping, tripping and stumbling without subsequent striking against object, initial encounter; Y92.012 Bathroom of single-family (private) house as the place of occurrence of the external cause; I12.9 Hypertensive chronic kidney disease with stage 1 through stage 4 chronic kidney disease, or unspecified chronic kidney disease; Z87.442 Personal history of urinary calculi; N18.4 Chronic kidney disease, stage 4 (severe); I25.10 Atherosclerotic heart disease of native coronary artery without angina pectoris; Z85.528 Personal history of other malignant neoplasm of kidney; Z79.82 Long term (current) use of aspirin; Z79.01 Long term (current) use of anticoagulants; Z79.899 Other long term (current) drug therapy; Z80.9 Family history of malignant neoplasm, unspecified